=== PATIENT | female | born 1970 | race African-American/Black ===

== ENCOUNTER 2025-02-11 21:10 | Inpatient (IN) | payer BC ==
[2025-02-11 21:41] VITALS: BMI 25.7
[2025-02-11 21:49] LABS: ABSOLUTE IMMATURE GRANULOCYTES 0.02 x10^3/uL (0.0-0.031); BASOPHILS # 0.02 x10^3/uL (0.01-0.08); EOSINOPHIL % 0.9 % (0.7-5.8); EOSINOPHILS # 0.11 x10^3/uL (0.04-0.36); HEMATOCRIT 37.3 % (34.1-44.9); HEMOGLOBIN 12.1 g/dL (11.2-15.7); MCHC 32.4 g/dl (32.2-35.5); MEAN CELL VOLUME 89.2 fl (79.4-94.8); MEAN PLT VOLUME 11.9 fl (9.4-12.3); MONOCYTE # 0.47 x10^3/uL (0.24-0.86); PLATELET COUNT 112 x10^3/uL (182-369); RDW 13.1 % (12.3-16.6)
[2025-02-11] MEDS ORDERED: ASPIRIN 81 MG CHEWABLE TABLETS ONE (21:58)
[2025-02-11] MEDS: ASPIRIN 81 MG CHEWABLE TABLETS PO ONE (21:59)
[2025-02-11 22:11] LABS: ALBUMIN 4.6 g/dl (3.4-5.0); BILIRUBIN,TOTAL 0.4 mg/dl (0.2-1); CALCIUM 9.6 mg/dl (8.5-10.1); CREATININE 0.8 mg/dl (0.6-1.3); POTASSIUM 3.5 mmol/L (3.5-5.1); TOT PROT 7.8 g/dl (6.4-8.2)
[2025-02-11] MEDS ORDERED: morphine SULFATE 4 MG/ML VIAL ONE (23:14)
[2025-02-11] MEDS: morphine CARPU-JECT 4 MG/1 ML DISP.SYRIN IVPUSH ONE (23:17)
[2025-02-12 00:57] LABS: HIV INTERPRETATION NEGATIVE (NEGATIVE)
[2025-02-12 00:58] LABS: HCV DIAGNOSTIC IN-HOUSE W/RFLX NON-REACTIVE (NONREACTIVE)
[2025-02-12] MEDS ORDERED: NITROGLYCERIN SUBLINGUAL 1/200 0.3 MG BTL SL PRN (01:48)
[2025-02-12] MEDS: ONDANSETRON 4 MG/2 ML VIAL IVPUSH PRN (02:05)
[2025-02-12 02:38] VITALS: RESP 20; TEMP 97.3
[2025-02-12] MEDS: NITROGLYCERIN 2% OINTMENT - 1GM PACKET TD PRN (03:54)
[2025-02-12 05:16] LABS: HEMOGLOBIN 11.5 g/dL (11.2-15.7); MCHC 31.9 g/dl (32.2-35.5); MEAN CELL VOLUME 88.9 fl (79.4-94.8)
[2025-02-12 05:17] LABS: HEMATOCRIT 36.1 % (34.1-44.9); PLATELET COUNT 131 x10^3/uL (182-369); RDW 13.2 % (12.3-16.6)
[2025-02-12 05:37] LABS: POTASSIUM 3.6 mmol/L (3.5-5.1)
[2025-02-12 05:40] LABS: ALBUMIN 3.8 g/dl (3.4-5.0); BLOOD UREA NITROGEN 13.6 mg/dL (7-18); MAGNESIUM 2.1 mg/dL (1.8-2.4)
[2025-02-12 05:43] LABS: CREATININE 0.8 mg/dL (0.55-1.3)
[2025-02-12 05:44] LABS: BILIRUBIN,TOTAL 0.4 mg/dL (0.2-1)
[2025-02-12 05:45] LABS: TOT PROT 7.7 g/dl (6.4-8.2)
[2025-02-12 05:51] LABS: CHOLESTEROL 114 mg/dL (50-200)
[2025-02-12 05:53] LABS: LDL CHOLESTEROL (ONLY SJRH) 112 mg/dL (5-100)
[2025-02-12 05:54] LABS: HDL CHOLESTEROL 53 mg/dL (40-60)
[2025-02-12] MEDS ORDERED: HEPARIN NA (PORCINE) 5,000 UNITS/ML 1ML VIAL IVPUSH PRN (06:26)
[2025-02-12] MEDS: HEPARIN NA (PORCINE) 5,000 UNITS/ML 1ML VIAL IVPUSH PRN (07:02)
[2025-02-12] MEDS: HEPARIN INFUSION - 25,000 UNITS/500 ML INFUS.BAG IVPB SCH (07:04)
[2025-02-12 07:41] VITALS: BP 117/79; PULSE 50
[2025-02-12] MEDS: ASPIRIN COATED 81 MG TABLET.EC PO SCH (09:30)
[2025-02-12] MEDS ORDERED: ENOXAPARIN NA (PORCINE) 40 MG/0.4 ML DISP.SYRIN SQ SCH (10:00)
[2025-02-12] MEDS ORDERED: ATORVASTATIN CA 40 MG TABLET (FP) PO SCH (22:00)
== END 2025-02-12 12:28 | disposition short-term general hospital (02) | DRG 281 ==
LOC: FER 21:10 → J4W 02-12 00:30
PROVIDERS: ADMIT Hospitalist; ATTEND Internal Medicine
DX: I21.4 Non-ST elevation (NSTEMI) myocardial infarction (principal); D69.3 Immune thrombocytopenic purpura; I10 Essential (primary) hypertension
CPT/HCPCS: 36415; 71045-TC-FY; 80053; 80061; 83036; 83735; 84484; 85025; 85027; 85379; 85730; 86803; 87389; 93005; 93010; 93306-TC; 99285-25; J1644